=== PATIENT | male | born 1955 | race Caucasian/White ===

== ENCOUNTER 2020-04-07 06:41 | Day surgery (SDC) | payer OTHER ==
[2020-04-02 15:59] VITALS: BMI 40.3
[2020-04-07 09:35] VITALS: TEMP 97.8
[2020-04-07 10:29] VITALS: BP 143/68; PULSE 51
== END 2020-04-07 10:38 | disposition home or self-care (01) ==
LOC: JASU-ENDO 06:41
PROVIDERS: ATTEND Internal Medicine Gastroenterology
PROC: 0DBM8ZX Excision of Descending Colon, Via Natural or Artificial Opening Endoscopic, Diagnostic (ICD-10-PCS; 2020-04-07)
PROC: 0DBP8ZX Excision of Rectum, Via Natural or Artificial Opening Endoscopic, Diagnostic (ICD-10-PCS; 2020-04-07)
PROC: 3E0H8KZ Introduction of Other Diagnostic Substance into Lower GI, Via Natural or Artificial Opening Endoscopic (ICD-10-PCS; 2020-04-07)
PROC: 0DBL8ZX Excision of Transverse Colon, Via Natural or Artificial Opening Endoscopic, Diagnostic (ICD-10-PCS; principal; 2020-04-07 09:00)
DX: Z12.11 Encounter for screening for malignant neoplasm of colon (principal); D12.3 Benign neoplasm of transverse colon; D12.4 Benign neoplasm of descending colon; K62.1 Rectal polyp; K57.30 Diverticulosis of large intestine without perforation or abscess without bleeding; K64.8 Other hemorrhoids
CPT/HCPCS: 88305-TC

== ENCOUNTER 2023-06-20 04:33 | Day surgery (SDC) | payer OTHER ==
[2023-06-16 13:48] VITALS: BMI 32.3
[2023-06-20 11:27] VITALS: TEMP 99
[2023-06-20 11:51] VITALS: RESP 12
[2023-06-20 11:56] VITALS: BP 135/73; PULSE 53
== END 2023-06-20 12:34 | disposition home or self-care (01) ==
LOC: JASU-ENDO 04:33
PROVIDERS: ATTEND Internal Medicine Gastroenterology
PROC: 0DBM8ZX Excision of Descending Colon, Via Natural or Artificial Opening Endoscopic, Diagnostic (ICD-10-PCS; principal; 2023-06-20 11:00)
DX: Z12.11 Encounter for screening for malignant neoplasm of colon (principal); D12.4 Benign neoplasm of descending colon; K64.8 Other hemorrhoids; K62.89 Other specified diseases of anus and rectum; Z86.010 Personal history of colon polyps; I10 Essential (primary) hypertension
CPT/HCPCS: 88305-TC